=== PATIENT | female | born 1980 | race Caucasian/White ===

== ENCOUNTER 2021-12-10 23:53 | Emergency (ER) | payer OTHER ==
[2021-12-11] MEDS ORDERED: LORazepam 1 MG Tab PO ONE (00:37)
== END 2021-12-11 00:55 | disposition home or self-care (01) ==
LOC: JD.ED 23:53
DX: T48.6X1A Poisoning by antiasthmatics, accidental (unintentional), initial encounter (principal); F41.9 Anxiety disorder, unspecified; E66.9 Obesity, unspecified; Z68.34 Body mass index [BMI] 34.0-34.9, adult; Z88.6 Allergy status to analgesic agent
CPT/HCPCS: 99283; A9270